=== PATIENT | female | born 1955 | race Caucasian/White ===

== ENCOUNTER → 2019-07-10 17:18 | Outpatient (CLI) | payer OTHER | END | disposition home or self-care (01) | LOC: D.LABREF 17:18 | PROVIDERS: ATTEND Orthopaedic Surgery | DX: M16.11 Unilateral primary osteoarthritis, right hip (principal) ==

== ENCOUNTER 2019-07-12 17:31 | Inpatient (IN) | payer OTHER ==
[~2019-07-12] VITALS: Ht 165.1 cm; Wt 84.1 kg
[2019-08-09 11:31] LABS: BASOPHILS 0.6 % (0-2); EOSINOPHILS 2.3 % (0-7); HEMATOCRIT 44.6 % (36.0-48.0); HEMOGLOBIN 14.7 g/dL (12-16); IMMATURE GRANULOCYTES 0.1 % (0-5); LYMPHOCYTES 40.3 % (15-50); MCH 30.3 pg (26.0-34.0); MEAN PLATELET VOLUME 9.7 fL (7.4-10.4); MONOCYTES 5.3 % (2-11); NEUTROPHILS 51.4 % (40-80); PLATELET COUNT 231 10x3/uL (130-400); RBC 4.85 10x6/uL (4.00-5.40); RDW 13.1 % (11.5-14.5)
[2019-08-09 11:39] LABS: APTT 24.8 SECONDS (22.8-39.4); INR 0.9 (0.85-1.17); PROTIME 12.2 SECONDS (11.6-15.0)
[2019-08-09 11:44] LABS: NITRITE NEGATIVE (NEGATIVE); SPECIFIC GRAVITY 1.005 (1.005-1.020)
[2019-08-09 11:45] LABS: BILIRUBIN NEGATIVE (NEGATIVE); EPITHELIAL CELLS 0-5 /hpf (0-5); GLUCOSE NEGATIVE (NEGATIVE); KETONE NEGATIVE (NEGATIVE); RED CELLS - URINE 0-5 /hpf (0-5); UROBILINOGEN NORMAL (NORMAL); WHITE CELLS - URINE 0-5 /hpf (NEGATIVE)
[2019-08-09 11:46] LABS: BACTERIA FEW /hpf (NEGATIVE)
[2019-08-09 11:48] LABS: ANION GAP 15.4 mmol/L (8-16); CALCIUM 9.3 mg/dL (8.5-10.1); CARBON DIOXIDE 26.4 mmol/L (21.0-32.0); CREATININE - SERUM 0.9 mg/dL (0.6-1.3); POTASSIUM - SERUM 3.8 mmol/L (3.5-5.1)
[2019-08-15] VITALS (11 sets, daily range): BP systolic 97–147; BP diastolic 53–97; BMI 30.8
--- NOTE | 2019-08-15 16:45 | NUR ---
1620[facility] PRE[facility] PRIOR TO CHLORAPREP
--- NOTE | 2019-08-15 19:00 | NUR ---
REC'D PATIENT FROM RECOVERY. VSS. PATIENT ALERT AND ABLE TO ANSWER QUESTIONS. ALVERTO MARX AT BEDSIDE. EXPLAINED IS TO PATIENT. PATIENT VERBALIZED UNDERSTANING AND RETURNED DEMONSTRATION. BED IN LOWEST POSITION AND CALL LIGHT WITHIN REACH. ENCOURAGED THE PATIENT TO CALL IF SHE HAS NEEDS. WILL CONTINUE TO MONITOR.
--- NOTE | 2019-08-15 19:03 | NUR ---
RECEIVED TO ROOM 1211 VIA BED FROM PACU. A/O X3. C/O INTENSE PAIN AT THIS TIME TO LEFT HIP. WILL MONITOR. SKIN INTACT WITHOUT REDNESS EXCEPT INCISION TO LEFT HIP WHICH HAS A DRY INTACT DRESSING IN PLACE.
--- NOTE | 2019-08-15 19:13 | NUR ---
ADMINISTERED TORADOL FOR PATIENT C/O 01/19 PAIN.
--- NOTE | 2019-08-15 21:25 | NUR ---
PATIENT STATED SHE STILL HAS "A LOT OF PAIN" ADMINISTERED OXY FOR 7/10 PAIN. WILL CONTINUE TO MONITOR.
[2019-08-16] VITALS (7 sets, daily range): BP systolic 81–114; BP diastolic 47–58; Ht 165.1 cm; Wt 84.1 kg
--- NOTE | 2019-08-16 01:50 | NUR ---
ASSISTED PATIENT TO BSC. PATIENT VOIDED 400ML
[2019-08-16 06:59] LABS: BASOPHILS 0.1 % (0-2); EOSINOPHILS 0 % (0-7); HEMOGLOBIN 11.8 g/dL (12-16); IMMATURE GRANULOCYTES 0.2 % (0-5); LYMPHOCYTES 10.5 % (15-50); MCHC 32.8 g/dL (31.0-37.0); MCV 91.6 fL (80.0-100.0); MEAN PLATELET VOLUME 9.7 fL (7.4-10.4); MONOCYTES 6.1 % (2-11); NEUTROPHILS 83.1 % (40-80); PLATELET COUNT 198 10x3/uL (130-400); RBC 3.93 10x6/uL (4.00-5.40); RDW 12.9 % (11.5-14.5); WBC 9.8 10x3/uL (4.8-10.8)
[2019-08-16 07:13] LABS: ANION GAP 12.5 mmol/L (8-16); CALCIUM 7.9 mg/dL (8.5-10.1); CARBON DIOXIDE 24.7 mmol/L (21.0-32.0); CREATININE - SERUM 1.1 mg/dL (0.6-1.3); MAGNESIUM - SERUM 1.7 mg/dL (1.8-2.4); PHOSPHOROUS 4.1 mg/dL (2.5-4.9); POTASSIUM - SERUM 4.2 mmol/L (3.5-5.1)
--- NOTE | 2019-08-16 07:48 | OP ---
PATIENT NAME: IMELDA JACKSON MEDICAL RECORD: [id number] :57 LOCATION:D. D.1211 ADMISSION DATE:08/15/19 SURGEON: JAIR LAMBERT DO DATE OF OPERATION: 08/15/2019 PROCEDURE PERFORMED: Left total hip arthroplasty. PREOPERATIVE DIAGNOSIS: Left hip osteoarthritis. POSTOPERATIVE DIAGNOSIS: Left hip osteoarthritis. INDICATIONS: Ms. Jackson is a 63-year-old female who has had left hip pain for quite some time. She has been dealing with it for a while and it got to a point where she was hardly able to walk and wanted something done surgically. I saw her about 2 months ago and she got to a point where she needs something done and it is severely affecting her activities of daily living making this an urgent case. She was aware of the risks including infection, bleeding, damage to nerves and vessels, need for further surgery, fracture, continued pain, anterolateral thigh numbness, failure of implants, blood clots, and even and signed the consent. SURGEON: Jair Lambert DO DESCRIPTION OF PROCEDURE: The patient taken to operative suite, laid in supine position, given general anesthetic and intubated. She was given a gram of Ancef and 80 mg of gentamicin. She was then positioned over the [place] table and the left hip was prepped and draped in sterile fashion. A timeout was performed and everyone was in agreement with the correct side, site, patient, and procedure. We then began by making an incision over the tensor fascia devaughn muscle belly and careful dissection down to the tensor fascia devaughn. The fascia was incised and taken anteriorly and muscle belly posteriorly and opened up the rectus interval. The rectus was then opened, taken medially and the tensor fascia devaughn laterally. The ascending branch of the lateral femoral circumflex was then encountered and tied off and coagulated with the Aquamantys. The capsule was then exposed and the capsule was opened up and the Hohmanns were placed inside the capsule. The capsule was tagged. I then made a femoral neck cut and used a corkscrew to remove the femoral head. Once the femoral head was removed, the trial was put in and the labrum and pulvinar were removed. I then began reaming up to a 50. 50 G7 cup up was put in and the liner put in. We then exposed the femur. The reaming and cup placement was done under x-ray. We then used the canal finder Knimbus cutter and then broached from a 4 to a 9. The 9 fit very well and trialed a -3. -3 was a little short, we did decided to go with a standard neck length and I put the 9 stem down after irrigating and then reduced the dual mobility head with a standard neck. X-rays were taken. There were no fractures seen and very good lengths compared to the right side. When then irrigated and left a 10% povidone iodine solution with 500 mL normal saline in the wound for 3 minutes, it was then irrigated out with a liter of normal saline and put Robe and vancomycin and tobramycin powder in the wound and closed the tensor fascia devaughn fascia with #1 Vicryl in a [id number]-[id number]-snyrm, then a running locking stitch after that. The rest was closed by Shade Stuart, certified appliance service technician. He closed the skin with 2-0 Vicryl in an interrupted fashion, 4-0 Monocryl around on the skin and Prineo glue on the skin. She was then dressed with Telfa and Tegaderm. Awakened and taken to recovery in stable condition. OPERATIVE REPORT [id number] IMELDA JACKSON BLOOD LOSS: Approximately 400 mL. COMPLICATIONS: None. TRANSINT:[id number] Voice Confirmation ID: [id number] DOCUMENT ID: [id number] JAIR LAMBERT DO at 0748 CC: [id number] DICTATION DATE: 08/15/191802 HELPER TEACHER: 08/16/19 0128 ADM IN [facility] [address] [place] [address]
--- NOTE | 2019-08-16 10:46 | NUR ---
PT SITTING IN CHAIR AT BEDSIDE AFTER AMBULATING WITH THERAPY. SCDS ON BILAT. USED INCENTIVE SPRIOMETRY AND PULLED APPROX 1250CC. DRESSING TO LEFT HIP CLEAN DRY AND INTACT. CALL LIGHT IN REACH. FALL PRECAUTIONS IN PLACE. NO PAIN AT PRESENT VOICED.
--- NOTE | 2019-08-16 20:05 | NUR ---
ASSISTED UP TO BR TO VOID. AMB WITH WALKER. DSRG NOTED TO LT HIP IS C/D/I. RATES PAIN IN LT HIP 5. MEDICATED WITH OXYCODONE. PT IS [place] AND HAS COCHLEAR IMPLANTS. 1/2 NS @ 50 ML/HR INFUSING IN RT HAND WITHOUT DIFF. SCDS IN USE BILAT. RESP EVEN AND NONLABORED. ENCOURAGED USE OF I.S. SHE VERBALIZED UNDERSTANDING. ALERT AND ORIENTED X4. SR ELEVATED X2. CL IN REACH. BED ALARM IN USE.
--- NOTE | 2019-08-16 21:17 | MORECARE ---
CASE MANAGEMENT DISCHARGE SUMMARY PATIENT: IMELDA JACKSON UNIT: [id number] ADM DATE: 08/15/19 AGE: 63 : 57 SEX: F ROOM/BED: D.1211 AUTHOR: VIRI ORDONEZ PHYSICIAN: REFERRING PHYSICIAN: JHOAN LAMBERT DO DATE OF SERVICE: 08/16/19 Discharge Plan Patient Name: IMELDA JACKSON Facility: [facility]:[place] : 1955 Planned Disposition: Home Anticipated Discharge Date: Discharge Date: Expected LOS: Initial Reviewer: [email or web address] Initial Review Date: 08/15/2019 Generated: 08/16/19 10:16 pm DCPIA - Discharge Planning Initial Assessment Updated by [email or web address]: Dawn Sepulveda on 08/16/19 9:17 pm * Is the patient Alert and Oriented? Yes * How many steps to enter\exit or inside your home? * PCP ZEYAD GROSS * Pharmacy [facility] * Preadmission Environment Home with Family * ADLs Independent * Other Equipment WALKER, CANE, * List name and contact numbers for known caregivers / representatives who currently or will assist patient after discharge: [facility] - [facility]- [phone] * Verbal permission to speak to the caregivers and representatives has been obtained from the patient. Yes * Community resources currently utilized None * Additional services required to return to the preadmission environment? No * Can the patient safely return to the preadmission environment? Yes * Has this patient been hospitalized within the prior 30 days at any hospital? No Patient Name: IMELDA JACKSON Page 82259 at 2117 All edits/amendments must be made on the electronic document DICTATION DATE: 08/16/192115 DOMINATRIX: TANNA 08/16/192115 RPT#: [id number] DC DATE: STATUS: ADM IN [facility] [address] [place] [address] END OF REPORT
--- NOTE | 2019-08-16 21:23 | MORECARE ---
CASE MANAGEMENT DISCHARGE SUMMARY PATIENT: IMELDA JACKSON UNIT: [id number] ADM DATE: 08/15/19 AGE: 63 : 57 SEX: F ROOM/BED: D.1211 AUTHOR: VIRI ORDONEZ PHYSICIAN: REFERRING PHYSICIAN: JHOAN LAMBERT DO DATE OF SERVICE: 08/16/19 Discharge Plan Patient Name: IMELDA JACKSON Facility: [facility]:[place] : 1955 Planned Disposition: Home Anticipated Discharge Date: Discharge Date: Expected LOS: Initial Reviewer: [email or web address] Initial Review Date: 08/15/2019 Generated: 08/16/19 10:23 pm Comments DCP- Discharge Planning Updated by [email or web address]: Dawn Sepulveda on 08/16/19 8:[address] Patient Name: IMELDA JACKSON Admission Status: Elective Accout number: [id number] Admission Date: 08-15-2019 : 1955 Admission Diagnosis: Attending: JHOAN LAMBERT Current LOS: 1 Anticipated DC Date: Planned Disposition: Home Primary Insurance: [employer] [facility] Discharge Planning Comments: CM met with patient to complete initial dc planning assessment. CM educated patient on the CM role and verbal consent given by patient to complete assessment. Patient lives at home with her where she is independent with her care. At discharge patient plans to return home and feels this is a safe discharge. CM discussed availability of home health, rehab services, and medical equipment. Patient states that she has a walker and a cane. Patient states she needs a BSC wants to check with [facility] loan closet [phone]. MONICA signed for [facility] [phone]. for outpatient therapy. Patient denied known discharge needs at this time. CM will continue to follow and will assist as needed with dc plans/needs. Electric Blanket Wirer: Dawn Sepulveda DCPIA - Discharge Planning Initial Assessment Updated by [email or web address]: Dawn Sepulveda on 08/16/19 9:17 pm * Is the patient Alert and Oriented? Yes * How many steps to enter\exit or inside your home? * PCP ZEYAD GROSS * [facility]acy [facility] * Preadmission Environment Home with Family * ADLs Independent * Other Equipment WALKER, CANE, * List name and contact numbers for known caregivers / representatives who currently or will assist patient after discharge: [facility] - [facility]- [phone] * Verbal permission to speak to the caregivers and representatives has been obtained from the patient. Yes * Community resources currently utilized None * Additional services required to return to the preadmission environment? No * Can the patient safely return to the preadmission environment? Yes * Has this patient been hospitalized within the prior 30 days at any hospital? No Last DP export: 08/16/19 8:17 pm Patient Name: IMELDA JACKSON Page [phone] at 2123 All edits/amendments must be made on the electronic document DICTATION DATE: 08/16/192122 MORTAR CARRIER: TANNA 08/16/192122 RPT#: [id number] DC DATE: STATUS: ADM IN [facility] [address] [place] [address] END OF REPORT
--- NOTE | 2019-08-16 22:10 | NUR ---
ASSISTED UP TO BR TO VOID. HAS BEEN DRINKING ALOT OF WATER AND HAVING TO VOID FREQUENTLY.
[2019-08-17 00:30] VITALS: BP 125/68
--- NOTE | 2019-08-17 00:42 | NUR ---
ASSITED UP TO BR TO VOID. C/O PAIN IN LT HIP. MEDICATED WITH OXYCODONE 10MG AND VISTARIL ORDERED. CL IN REACH. BED ALARM ON FOR PT SAFETY.
--- NOTE | 2019-08-17 04:00 | NUR ---
ASSISTED UP TO BR TO VOID. DRINKING ALOT OF WATER. CL IN REACH. NO DISTRESS.
[2019-08-17 04:32] VITALS: BP 111/57
--- NOTE | 2019-08-17 06:21 | NUR ---
ASSISTED UP TO BR TO VOID. MEDICATED WITH OXY 10MG PER REQUEST FOR C/O HIP PAIN. CL IN REACH.
[2019-08-17 06:53] LABS: BASOPHILS 0.3 % (0-2); EOSINOPHILS 0.8 % (0-7); HEMATOCRIT 33.5 % (36.0-48.0); HEMOGLOBIN 10.6 g/dL (12-16); IMMATURE GRANULOCYTES 0.3 % (0-5); MCH 29.4 pg (26.0-34.0); MCHC 31.6 g/dL (31.0-37.0); MCV 93.1 fL (80.0-100.0); MEAN PLATELET VOLUME 9.5 fL (7.4-10.4); MONOCYTES 8.3 % (2-11); NEUTROPHILS 61.3 % (40-80); RDW 13.5 % (11.5-14.5); WBC 7.9 10x3/uL (4.8-10.8)
[2019-08-17 06:55] LABS: PLATELET COUNT 158 10x3/uL (130-400)
[2019-08-17 07:24] LABS: ANION GAP 10.2 mmol/L (8-16); CREATININE - SERUM 0.9 mg/dL (0.6-1.3); PHOSPHOROUS 3.1 mg/dL (2.5-4.9); POTASSIUM - SERUM 4.2 mmol/L (3.5-5.1)
--- NOTE | 2019-08-17 07:30 | NUR ---
AWAKE AND ALERT. ORIENTED X3. NO C/O AT THIS TIME. LUNGS ARE CLEAR BILATERALLY, NO COUGH NOTED. REPORTS USING IT INSTRUCTED. SKIN IS INTACT WITHOUT REDNESS EXCEPT INCISION TO LEFT HIP WHICH HAS A DRY INTACT DRESSING IN PLACE. GILMA ROWE.
[2019-08-17 07:43] VITALS: BP 100/58
[2019-08-17] MEDS ORDERED: ELIQUIS2.5 MG PO (08:39)
[2019-08-17] MEDS ORDERED: KEFLEX500 MG PO (08:39)
[2019-08-17] MEDS ORDERED: oxyCODONE IR PO (08:39)
[2019-08-17] MEDS ORDERED: VISTARIL50 MG PO (08:39)
--- NOTE | 2019-08-17 09:00 | NUR ---
ATE MOST OF BREAKFAST. TOOK AM MEDS WITHOUT DIFFICULTY. UP TO BR WITH RW ONE PERSON SBA. VOIDED WITHOUT DIFFICULTY.
--- NOTE | 2019-08-17 09:02 | NUR ---
PT ASSISTED FROM BATHROOM TO BEDSIDE CHAIR WITH STAND BY ASSIST. PT USING WALKER. PT IS AAO X 4. PT DENIES PRESENCE OF N/V/DIZZINESS/DYSPNEA AT THIS TIME. FALL PRECAUTIONS IN PLACE. PT DENIES FURTHER NEEDS.
--- NOTE | 2019-08-17 10:19 | NUR ---
PT REFUSES BATH AT THIS TIME.
[2019-08-17 11:44] VITALS: BP 121/70
--- NOTE | 2019-08-17 11:44 | NUR ---
INCENTIVE SPIROMETER INCOURAGED. PT GIVES APPROPRIATE RETURN DEMONSTRATION. PT VERBALIZES UNDERSTANDING AND DENIES FURTHER NEEDS.
--- NOTE | 2019-08-17 12:24 | MORECARE ---
CASE MANAGEMENT DISCHARGE SUMMARY PATIENT: IMELDA JACKSON UNIT: [id number] ADM DATE: 08/15/19 AGE: 63 : 57 SEX: F ROOM/BED: D.1211 AUTHOR: MERY,DOC PHYSICIAN: REFERRING PHYSICIAN: JHOAN LAMBERT DO DATE OF SERVICE: 08/17/19 Discharge Plan Patient Name: IMELDA JACKSON Facility: [facility]:[place] : 1955 Planned Disposition: Home Anticipated Discharge Date: Discharge Date: Expected LOS: Initial Reviewer: [email or web address] Initial Review Date: 08/15/2019 Generated: 08/17/19 1:24 pm DCP- Discharge Planning Updated by [email or web address]: Dawn Sepulveda on 08/16/19 8:[address] Patient Name: IMELDA JACKSON Admission Status: Elective Accout number: [id number] Admission Date: 08-15-2019 : 1955 Admission Diagnosis: Attending: JHOAN LAMBERT Current LOS: 1 Anticipated DC Date: Planned Disposition: Home Primary Insurance: [employer] [facility] Discharge Planning Comments: CM met with patient to complete initial dc planning assessment. CM educated patient on the CM role and verbal consent given by patient to complete assessment. Patient lives at home with her where she is independent with her care. At discharge patient plans to return home and feels this is a safe discharge. CM discussed availability of home health, rehab services, and medical equipment. Patient states that she has a walker and a cane. Patient states she needs a BSC wants to check with [facility] loan [facility] [phone]. MONICA signed for [facility] [phone]. for outpatient therapy. Patient denied known discharge needs at this time. CM will continue to follow and will assist as needed with dc plans/needs. Field Installation Technician: Dawn Sepulveda DCPIA - Discharge Planning Initial Assessment Updated by [email or web address]: Dawn Sepulveda on 08/16/19 9:17 pm * Is the patient Alert and Oriented? Yes * How many steps to enter\exit or inside your home? * PCP ZEYAD GROSS * [facility] * Preadmission Environment Home with Family * ADLs Independent * Other Equipment WALKER, CANE, * List name and contact numbers for known caregivers / representatives who currently or will assist patient after discharge: [facility] - [facility]- [phone] * Verbal permission to speak to the caregivers and representatives has been obtained from the patient. Yes * Community resources currently utilized None * Additional services required to return to the preadmission environment? No * Can the patient safely return to the preadmission environment? Yes * Has this patient been hospitalized within the prior 30 days at any hospital? No External Providers External Provider: [facility] Next Contact Date: Service Request Date: Service Type: Resolution: Reviewer: Comments: Last DP export: 08/16/19 8:23 pm Patient Name: IMELDA JACKSON Page [phone] at 1224 All edits/amendments must be made on the electronic document DICTATION DATE: 08/17/19 1224 ESTIMATOR: TANNA 08/17/19 1224 RPT#: [id number] DC DATE: STATUS: ADM IN [facility] [address] [place] [address] END OF REPORT
--- NOTE | 2019-08-17 12:31 | MORECARE ---
CASE MANAGEMENT DISCHARGE SUMMARY PATIENT: IMELDA JACKSON UNIT: [id number] ADM DATE: 08/15/19 AGE: 63 : 57 SEX: F ROOM/BED: D.1211 AUTHOR: MERY,DOC PHYSICIAN: REFERRING PHYSICIAN: JHOAN LAMBERT DO DATE OF SERVICE: 08/17/19 Discharge Plan Patient Name: IMELDA JACKSON Facility: [facility]:[place] : 1955 Planned Disposition: Home Anticipated Discharge Date: Discharge Date: Expected LOS: Initial Reviewer: [email or web address] Initial Review Date: 08/15/2019 Generated: 08/17/19 1:31 pm DCP- Discharge Planning Updated by [email or web address]: Dawn Sepulveda on 08/16/19 8:[address] Patient Name: IMELDA JACKSON Admission Status: Elective Accout number: [id number] Admission Date: 08-15-2019 : 1955 Admission Diagnosis: Attending: JHOAN LAMBERT Current LOS: 1 Anticipated DC Date: Planned Disposition: Home Primary Insurance: [employer] [facility] Discharge Planning Comments: CM met with patient to complete initial dc planning assessment. CM educated patient on the CM role and verbal consent given by patient to complete assessment. Patient lives at home with her where she is independent with her care. At discharge patient plans to return home and feels this is a safe discharge. CM discussed availability of home health, rehab services, and medical equipment. Patient states that she has a walker and a cane. Patient states she needs a BSC wants to check with [facility] [phone]. MONICA signed for [facility] [phone]. for outpatient therapy. Patient denied known discharge needs at this time. CM will continue to follow and will assist as needed with dc plans/needs. Manager Demand: Dawn Sepulveda DCPIA - Discharge Planning Initial Assessment Updated by [email or web address]: Dawn Sepulveda on 08/16/19 9:17 pm * Is the patient Alert and Oriented? Yes * How many steps to enter\exit or inside your home? * PCP ZEYAD GROSS * Pharmacy [facility] * Preadmission Environment Home with Family * ADLs Independent * Other Equipment WALKER, CANE, * List name and contact numbers for known caregivers / representatives who currently or will assist patient after discharge: [facility] - [facility]- [phone] * Verbal permission to speak to the caregivers and representatives has been obtained from the patient. Yes * Community resources currently utilized None * Additional services required to return to the preadmission environment? No * Can the patient safely return to the preadmission environment? Yes * Has this patient been hospitalized within the prior 30 days at any hospital? No External Providers External Provider: OTHER-OTHER Next Contact Date: Service Request Date: Service Type: Resolution: Reviewer: Comments: Last DP export: 08/17/19 11:24 am Patient Name: IMELDA JACKSON Page [phone] at 1231 All edits/amendments must be made on the electronic document DICTATION DATE: 08/17/19 1231 SLOT MACHINE REPAIRER: TANNA 08/17/19 1231 RPT#: [id number] DC DATE: STATUS: ADM IN [facility] [address] [place] [address] END OF REPORT
--- NOTE | 2019-08-17 12:45 | NUR ---
ATE ALL OF LUNCH. DENIES NEEDS.
--- NOTE | 2019-08-17 14:30 | NUR ---
DISCHARGED TO HOME AMBULATORY WITH . DISCHARGE INSTRUCTIONS GIVEN BOTH VERBALLY AND WRITTEN. ALL QUESTIONS ANSWERED. PATIENT VERBALIZED UNDERSTANDING OF SAME. NEEDED PRESCRIPTIONS GIVEN TO PATIENT. DRESSING CHANGED TO LEFT HIP, INCISION IS CLEAN DRY AND WELL APPROXIMATED. SL TO RIGHT HAND D/C WITH CATHETER INTACT. UP TO BR WITH SBA. VOIDED WITHOUT DIFFICULTY. REQUESTED PAIN MEDS FOR TRIP HOME. GIVNE 10MG OXY WITH 50MG VISTARIL PO. ALL BELONGINGS WITH PATIENT.
--- NOTE | 2019-08-17 18:42 | MORECARE ---
CASE MANAGEMENT DISCHARGE SUMMARY PATIENT: IMELDA JACKSON UNIT: [id number] ADM DATE: 08/15/19 AGE: 63 : 57 SEX: F ROOM/BED: D.1211 AUTHOR: MERY,DOC PHYSICIAN: REFERRING PHYSICIAN: JHOAN LAMBERT DO DATE OF SERVICE: 08/17/19 Discharge Plan Patient Name: IMELDA JACKSON Facility: [facility]:[place] : 1955 Planned Disposition: Home Anticipated Discharge Date: Discharge Date: 08/17/2019 Expected LOS: Initial Reviewer: [email or web address] Initial Review Date: 08/15/2019 Generated: 08/17/19 7:42 pm DCP- Discharge Planning Updated by [email or web address]: Dawn Sepulveda on 08/16/19 8:[address] Patient Name: IMELDA JACKSON Admission Status: Elective Accout number: [id number] Admission Date: 08-15-2019 : 1955 Admission Diagnosis: Attending: JHOAN LAMBERT Current LOS: 1 Anticipated DC Date: Planned Disposition: Home Primary Insurance: [employer] [facility] Discharge Planning Comments: CM met with patient to complete initial dc planning assessment. CM educated patient on the CM role and verbal consent given by patient to complete assessment. Patient lives at home with her where she is independent with her care. At discharge patient plans to return home and feels this is a safe discharge. CM discussed availability of home health, rehab services, and medical equipment. Patient states that she has a walker and a cane. Patient states she needs a BSC wants to check with [facility] [phone]. MONICA signed for [facility] [employer] [facility] [phone]. for outpatient therapy. Patient denied known discharge needs at this time. CM will continue to follow and will assist as needed with dc plans/needs. Silk Screen Processor: Dawn Sepulveda DCPIA - Discharge Planning Initial Assessment Updated by [email or web address]: Dawn Sepulveda on 08/16/19 9:17 pm * Is the patient Alert and Oriented? Yes * How many steps to enter\exit or inside your home? * PCP ZEYAD GROSS * Pharmacy [facility] * Preadmission Environment Home with Family * ADLs Independent * Other Equipment WALKER, CANE, * List name and contact numbers for known caregivers / representatives who currently or will assist patient after discharge: [facility] - [facility]- [phone] * Verbal permission to speak to the caregivers and representatives has been obtained from the patient. Yes * Community resources currently utilized None * Additional services required to return to the preadmission environment? No * Can the patient safely return to the preadmission environment? Yes * Has this patient been hospitalized within the prior 30 days at any hospital? No Last DP export: 08/17/19 11:31 am Patient Name: IMELDA JACKSON Page [phone] at 1842 All edits/amendments must be made on the electronic document DICTATION DATE: 08/17/191841 CREMATORY ATTENDANT: TANNA 08/17/191841 RPT#: [id number] DC DATE:08/17/19 STATUS: DIS IN [facility] [address] [place] [address] END OF REPORT
--- NOTE | 2019-08-17 18:49 | MORECARE ---
CASE MANAGEMENT DISCHARGE SUMMARY PATIENT: IMELDA JACKSON UNIT: [id number] ADM DATE: 08/15/19 AGE: 63 : 57 SEX: F ROOM/BED: D.1211 AUTHOR: MERY,DOC PHYSICIAN: REFERRING PHYSICIAN: JHOAN LAMBERT DO DATE OF SERVICE: 08/17/19 Discharge Plan Patient Name: IMELDA JACKSON Facility: [facility]:[place] : 1955 Planned Disposition: Home Anticipated Discharge Date: Discharge Date: 08/17/2019 Expected LOS: Initial Reviewer: [email or web address] Initial Review Date: 08/15/2019 Generated: 08/17/19 7:48 pm Comments DCP- Discharge Planning Updated by [email or web address]: Dawn Sepulveda on 08/17/19 5:[address] CM spoke with patient regarding [facility]. Patient stated that she had called several times and wasn't able to get in contact with anyone. CM spoke with [facility] and they wasn't able to run patients insurance. CM called insurance company after being on the phone for 35 mins found out that BSC was approved. CM sent order and records to [employer] and patient will have a co pay of $13.60 and will pickling grader on the way home. CM contacted and faxed orders to [facility] and PT patient is scheduled for Sunday 08/20 @ 3:30. DCP- Discharge Planning Updated by [email or web address]: Dawn Sepulveda on 08/16/19 8:[address] Patient Name: IMELDA JACKSON Admission Status: Elective Accout number: [id number] Admission Date: 08-15-2019 : 1955 Admission Diagnosis: Attending: JHOAN LAMBERT Current LOS: 1 Anticipated DC Date: Planned Disposition: Home Primary Insurance: [employer] [facility] Discharge Planning Comments: CM met with patient to complete initial dc planning assessment. CM educated patient on the CM role and verbal consent given by patient to complete assessment. Patient lives at home with her where she is independent with her care. At discharge patient plans to return home and feels this is a safe discharge. CM discussed availability of home health, rehab services, and medical equipment. Patient states that she has a walker and a cane. Patient states she needs a BSC wants to check with [facility] [phone]. MONICA signed for [facility] [phone]. for outpatient therapy. Patient denied known discharge needs at this time. CM will continue to follow and will assist as needed with dc plans/needs. Director Targeted Marketing: Dawn Sepulveda DCPIA - Discharge Planning Initial Assessment Updated by [email or web address]: Dawn Sepulveda on 08/16/19 9:17 pm * Is the patient Alert and Oriented? Yes * How many steps to enter\exit or inside your home? * PCP [facility] * [facility]acy [facility] * Preadmission Environment Home with Family * ADLs Independent * Other Equipment WALKER, CANE, * List name and contact numbers for known caregivers / representatives who currently or will assist patient after discharge: JOSE CARLOS [facility] - [facility]- [phone] * Verbal permission to speak to the caregivers and representatives has been obtained from the patient. Yes * Community resources currently utilized None * Additional services required to return to the preadmission environment? No * Can the patient safely return to the preadmission environment? Yes * Has this patient been hospitalized within the prior 30 days at any hospital? No Last DP export: 08/17/19 5:42 pm Patient Name: IMELDA JACKSON Page [id number] at 1849 All edits/amendments must be made on the electronic document DICTATION DATE: 08/17/191847 DIRECTOR OF SALES MARKETING: TANNA 08/17/191847 RPT#: [id number] DC DATE:08/17/19 STATUS: DIS IN [facility] [address] [place] [address] END OF REPORT
== END 2019-08-17 14:35 | disposition home or self-care (01) | DRG 470 ==
LOC: D.SDCHOLD 08-09 10:00 → D.M3 08-15 10:27 → D.SDCHOLD 08-15 10:30 → D.M3 08-15 18:52
PROVIDERS: Internal Medicine Nephrology; ADMIT Orthopaedic Surgery; ATTEND Orthopaedic Surgery
PROC: 0SRB0JZ Replacement of Left Hip Joint with Synthetic Substitute, Open Approach (ICD-10-PCS; principal; 2019-08-15 12:30)
DX: M16.12 Unilateral primary osteoarthritis, left hip (principal); E87.1 Hypo-osmolality and hyponatremia; D64.9 Anemia, unspecified; E83.42 Hypomagnesemia